=== PATIENT | male | born 1960 | race Caucasian/White ===

== ENCOUNTER 2019-10-19 09:22 | Outpatient (CLI) | payer BC, SELFPAY ==
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
== END 2019-10-19 09:23 | disposition home or self-care (01) ==
LOC: ANHIMG 09:27
PROVIDERS: PCP Internal Medicine; Visit Provider Internal Medicine
DX: S69.91XA Unspecified injury of right wrist, hand and finger(s), initial encounter (principal); X58.XXXA Exposure to other specified factors, initial encounter
CPT/HCPCS: 73130

== ENCOUNTER 2020-10-17 10:29 | Outpatient (CLI) | payer BC, SELFPAY ==
--- NOTE | ~2020-10-17 | MR_ITS ---
EXAMINATION: MR shoulder RT wo con DATE: 10/17/2020 11:31 INDICATION: Complex right rotator cuff tear. TECHNIQUE: Magnetic resonance imaging (MRI) of the right shoulder was performed without intravenous c ontrast. Sequences included axial PD-weighted FS FSE, coronal oblique PD-weighted FS FSE, coronal obl ique T2-weighted FS FSE, sagittal PD-weighted FS FSE, and sagittal T1-weighted SE. COMPARISON: None. FINDINGS: Coracoacromial arch: The acromion undersurface is curved in morphology (type II). The coracoacromial ligament is normal. M oderate to severe acromioclavicular osteoarthritis with small inferiorly directed osteophytes. Rotator cuff: Mild supraspinatus and infraspinatus tendinopathy. There is attenuation of the supraspinatus and conj oined portion of the supraspinatus and infraspinatus tendons with small fluid signal intensity articu lar sided tear defect extending approximately 1.7 cm anteroposteriorly along the superior facet and a nterior portion of the middle facet footplates of the tendons. There is a tiny full-thickness perfora tion located midway along the articular sided tear at the conjoined portion of the tendon and measuri ng approximately 2 mm AP and medial to lateral. Mild subscapularis tendinopathy without discrete tear . The teres minor tendon is normal. Normal rotator cuff muscle bulk and signal. Biceps tendon, glenoid labrum and glenohumeral cartilage: Long head of the biceps tendon is normal. Is partial thickness cartilage loss with smooth chondral thomas rface along the cephalad half of the glenoid. Additional partial thickness cartilage loss with some c hondral surface irregularity, minimal underlying cortical irregularity and a few tiny foci of subarti cular edema along the apex of the humeral head. Small tear at the 11:00-12:00 position of the posteri or superior glenoid labrum. Fluid: Physiologic amount of fluid in the glenohumeral joint and biceps tendon sheath. No loose osteochondra l bodies. Mild increased fluid signal in the subacromial/subdeltoid bursa consistent with mild bursit is. Bones: Reactive marrow edema related to osteoarthritis at both sides of the acromioclavicular joint space. O therwise normal marrow signal with no fracture or pathologic marrow replacing process. IMPRESSION: 1. Mild supraspinatus and infraspinatus tendinopathy with tiny full-thickness perforation at the dist al conjoined portion of the tendons and with mild partial thickness articular sided tear extending gabriel th anteriorly and posteriorly from the perforation for a total of 1.7 cm along the superior and anter ior middle facet footplates. 2. Moderate to severe acromioclavicular osteoarthritis with mild underlying subacromial/subdeltoid bu rsitis. 3. Mild glenohumeral osteoarthritis with small tear at the posterior superior glenoid labrum. Reviewed, dictated and finalized at location A. [employer] IMPRESSION: 1. Mild supraspinatus and infraspinatus tendinopathy with tiny full-thickness p erforation at the distal conjoined portion of the tendons and with mild partial thickness articular sided tear extending both anteriorly and posteriorly from the perforation for a total of 1.7 cm along the superior and anterior middle fa cet footplates. 2. Moderate to severe acromioclavicular osteoarthritis with mild underlying sub acromial/subdeltoid bursitis. 3. Mild glenohumeral osteoarthritis with small tear at the posterior superior g lenoid labrum.
== END 2020-10-17 10:30 | disposition home or self-care (01) ==
PROVIDERS: PCP Internal Medicine; Visit Provider Orthopaedic Surgery
DX: M75.121 Complete rotator cuff tear or rupture of right shoulder, not specified as traumatic (principal); M75.81 Other shoulder lesions, right shoulder; M19.011 Primary osteoarthritis, right shoulder; M75.51 Bursitis of right shoulder; S43.431A Superior glenoid labrum lesion of right shoulder, initial encounter
CPT/HCPCS: 73221

== ENCOUNTER 2020-12-22 13:49 | Outpatient (CLI) | payer BC, SELFPAY ==
[2020-12-22 14:28] LABS: Anion Gap 8 mmol/L (8-16); Blood Urea Nitrogen 22 mg/dL (9-20); Calcium 9.1 mg/dL (8.4-10.2); Carbon Dioxide 23 mmol/L (22-30); Chloride 106 mmol/L (98-107); Estimated Glomerular Filt Rate 57; Glucose 248 mg/dL (75-110); Potassium 4.9 mmol/L (3.4-5.0); Sodium 137 mmol/L (137-145)
== END 2020-12-22 13:50 | disposition home or self-care (01) ==
PROVIDERS: Anesthesiology; PCP Internal Medicine; Visit Provider Orthopaedic Surgery
DX: E11.9 Type 2 diabetes mellitus without complications (principal)
CPT/HCPCS: 36415; 80048

== ENCOUNTER → 2020-12-23 00:59 | Outpatient (CLI) | payer BC, SELFPAY ==
[2020-12-23 20:47] LABS: SARS-CoV-2 RNA PCR Negative
== END ==
PROVIDERS: PCP Internal Medicine; Visit Provider Orthopaedic Surgery
DX: Z01.812 Encounter for preprocedural laboratory examination (principal); Z20.822 Contact with and (suspected) exposure to COVID-19
CPT/HCPCS: C9803; U0003; U0005

== ENCOUNTER 2020-12-26 00:57 | Day surgery (SDC) | payer BC, SELFPAY ==
[2020-12-17 12:03] VITALS: BMI 34.5
--- NOTE | 2020-12-25 12:27 | WPDANESEPPF ---
Anes - Initial Pre Proc Eval Procedure: Operation Date: 12/26/20 07:30 Proposed Procedures p Arthroscopic Right Rotator Cuff Repair, Subacromial Decompression, Proceed as Indicated - Rey Quintana MD Date/Time: 12/25/20 12:27 Surgeon: Rey Quintana MD Pre Op Diagnosis: Complete Right Rotator Cuff Tear Patient Data Age: 60 Gender: M Height: 1.83 m Weight: 115.6 kg Allergies Allergy/AdvReac Type Severity Reaction Status Date / Time niacin Allergy Severe Hives Verified 12/17/20 12:01 adhesive tape AdvReac Blister Verified 12/17/20 12:01 Home Medications Medication Instructions Recorded Confirmed Type pen needle, diabetic 32 gauge x #50 each 07/13/19 12/08/20 History 1/ aspirin 81 mg chewable tablet 81 mg PO DAILY 02/14/20 12/17/20 History icosapent ethyl 1 gram capsule 2 gm PO BID #360 cap 03/26/20 12/17/20 Rx losartan 100 mg tablet 100 mg PO DAILY #90 tablet 05/06/20 12/17/20 Rx blood sugar diagnostic #600 each 07/18/20 12/08/20 Rx rosuvastatin 20 mg tablet 20 mg PO DAILY #90 tablet 08/06/20 12/17/20 Rx duloxetine 60 mg capsule,delayed 120 mg PO DAILY #180 cap 08/09/20 12/17/20 Rx release ezetimibe 10 mg tablet 10 mg PO DAILY #90 tablet 08/09/20 12/17/20 Rx metformin 1,000 mg tablet 1,000 mg PO BID #180 tablet 08/20/20 12/17/20 Rx Toujeo Max U-300 SoloStar 150 unit SUBCUT DAILY 12/17/20 12/17/20 History insulin lispro [Humalog KwikPen 30 - 75 unit SUB-Q TIDWM 12/17/20 12/17/20 History Insulin] metoprolol succinate 100 mg PO DAILY 12/17/20 12/17/20 History Patient hx anesthesia problems: none Family hx anesthesia problems: none PMFSH Past Medical History Medical History Abscess ASHD (arteriosclerotic heart disease) Benign essential hypertension BMI 35.0-35.9,adult CKD (chronic kidney disease), stage II hx of nephrectomy Colon cancer screening Complete tear of right rotator cuff DJD (degenerative joint disease), multiple sites DM type 2 (diabetes mellitus, type 2) Encounter for preventive health examination Encounter for routine adult health examination without abnormal findings Encounter for special screening examination for neoplasm of prostate Erectile dysfunction Hand injury Hearing loss History of carpal tunnel syndrome Hx of renal cell cancer Hx of nephrectomy Hyperlipidemia Keratosis, seborrheic Laceration of plantar aspect of right foot On ocean transportation intermediary drug therapy Vitamin D deficiency Surgical History Surgical History (Updated 12/25/20 @ 12:28 by Henri Mccray DO) History of carpal tunnel release History of knee surgery History of nephrectomy Hx of CABG x, 1998 Family History Family History Mother Family history of thoracic aortic aneurysm Other Family history of cardiovascular disease Hypertension Social History Social History Smoking status: Never smoker Alcohol intake: current Alcohol use details: 2/MONTH Substance use: never Substance use type: does not use Living arrangements: alone Spiritual care concerns: No Anes - Eval Final PreProcedure Day of Procedure 12/25/20 12:27 Patient weight: obese Heart: regular rate and rhythm Lungs: clear to auscultation and normal air movement Airway: Mallampati scale class II Neurological: alert and oriented Last oral intake: >/= 8 hours ASA classification: III Emergent: no Anesthetic plan: proceed Anesthesia type and monitoring: general ETT and standard monitoring Informed Consent: The patient's anesthetic plan and its attendant risks and benefits were discussed with the patient/family/POA. Questions were solicited and answers provided to the satisfaction of the patient/family/POA.
--- NOTE | 2020-12-25 12:28 | WPDANESPNB ---
Anes - Peripheral Nerve Block Date/Time: 12/25/20 12:28 I have discussed with the patient/family/POA the placement of a peripheral nerve block for post-operative pain management, including associated risks, benefits, complications, and side effects. Alternative methods of post-operative analgesia were detailed. Questions were solicited and answers provided to the satisfaction of the patient/family/POA. Time-Out: A pre-procedural Time-Out was completed immediately before starting the procedure and confirmed: Patient Identification, Site, Procedure, Patient Position and the Availability of Requisite Equipment. Clinical Indications: Acute post-operative pain management requested by the operative surgeon. Nerve Block Insertion Note Anes-nerve block: interscalene right Patient position: supine Skin prep: chlorhexidine Needle: 22 gauge, stimulating, insulated echogenic needle. Needle length: 50 mm Technique: ultrasound Injectate: bupivacaine 0.5% with epi 5 mcg/ml (30cc- no epi) Observations: tolerated well Complications: none Procedure start time:: 714 Procedure end time:: 719
[2020-12-26] VITALS (10 sets, daily range): BP systolic 96–139; BP diastolic 59–84; PULSE 53–73; RESP 10–18; TEMP 36.4; O2SAT 92–99
[2020-12-26] MEDS: LACTATED RINGERS 1,000 ML 30 ML IV CONT ×2 (06:30→10:59)
[2020-12-26] MEDS: ACETAMINOPHEN 500 MG TABLET 1000 MG PO (06:50)
[2020-12-26] MEDS: KETOROLAC 15 MG/ML VIAL (*BKC) IV PUSH (06:51)
--- NOTE | 2020-12-26 07:27 | WPDHPUPDATE1 ---
History and Physical Update Update Date/Time: 12/26/20 07:27 History and Physical has been reviewed, including an updated exam of the patient. There are NO changes in the patient's condition. Risks, benefits, and alternatives have been discussed and questions answered. Patient agrees to proceed with procedure.
[2020-12-26] MEDS: ceFAZolin 2 GM/D5W 50 ML 2 GM/50 ML BAG IVPB (07:32)
[2020-12-26 08:33] LABS: Glucose Point of Care 127 (65-105)
--- NOTE | 2020-12-26 12:08 | PM.PROC ---
Procedure Note - Detailed Date of procedure: 12/26/20 Pre-op diagnosis: Complete Right Rotator Cuff Tear Post-op diagnosis: other (1. Rotator cuff tear, complete 2. SLAP tear 3. Degenerative arthritis 4. Rotator cuff impingement) Procedure performed: 1. Arthroscopic rotator cuff repair. 2. Arthroscopic biceps tenotomy. 2. Arthroscopic subacromial decompression. Description of procedure: Medium size full thickness tear. 2 tunnel rip stop repair. Subacromial spur with impingement. SLAP tear extending to the anterior labrum treated with biceps tenotomy. Mild posterior labral wear. Grade 3 degenerative changes, at the superior humeral head only. Anesthesia: GETA Surgeon: Rey Quintana MD Estimated blood loss (mL): 20 Pathology: none sent Complications: None Condition: stable Disposition: PACU Findings: Operative detail: Preoperative antibiotics were given. An interscalene block was administered in the preoperative area. The patient was bought brought to the operating room. A general anesthetic was administered. The patient was carefully positioned in the lateral decubitus position. The head and neck were carefully positioned. The non operative extremity was also carefully positioned. The shoulder was prepped and draped in the usual sterile fashion. Examination was performed. Standard posterior and anterior arthroscopic portals were established. Inflow achieved with the arthroscopic pump using saline and epinephrine. The glenohumeral joint was carefully inspected. The labrum was debrided and the biceps released. The subscapularis was intact. The rotator cuff was torn at the central supraspinatus. Attention was turned to the subacromial space. A complete bursectomy was performed. The rotator cuff and footprint were lightly debrided. A modest acromioplasty was performed. The tear configuration was carefully assessed. It was a narrow tear that required A-P reduction more than lateral reduction. Thus the rip stop was used and the tunnels placed more medial. At this point, 2 tunnels were created at the rotator cuff. One anterior and 1 posterior. The ArthroTunneler technique was utilized. Three sutures were passed through each tunnel. All sutures were then passed through the cuff tissue. The sutures were tied arthroscopically. The arthroscopic instruments were removed. The wounds were closed with 3-0 Monocryl subcuticular suture and steri strips. There were no complications. A sling was applied and the patient brought to the recovery room.
== END 2020-12-26 13:09 | disposition home or self-care (01) ==
PROVIDERS: PCP Internal Medicine; Visit Provider Orthopaedic Surgery
PROC: (CPT 29805; principal; 2020-12-26 07:30)
DX: M75.121 Complete rotator cuff tear or rupture of right shoulder, not specified as traumatic (principal); S43.431A Superior glenoid labrum lesion of right shoulder, initial encounter; M75.41 Impingement syndrome of right shoulder; M75.81 Other shoulder lesions, right shoulder; M19.011 Primary osteoarthritis, right shoulder; G89.18 Other acute postprocedural pain; E11.22 Type 2 diabetes mellitus with diabetic chronic kidney disease; I12.9 Hypertensive chronic kidney disease with stage 1 through stage 4 chronic kidney disease, or unspecified chronic kidney disease; N18.2 Chronic kidney disease, stage 2 (mild); Z79.4 Long term (current) use of insulin; I25.10 Atherosclerotic heart disease of native coronary artery without angina pectoris; Z95.1 Presence of aortocoronary bypass graft; E78.5 Hyperlipidemia, unspecified; Z85.528 Personal history of other malignant neoplasm of kidney; Z90.5 Acquired absence of kidney; X58.XXXA Exposure to other specified factors, initial encounter; Y93.9 Activity, unspecified; Y92.9 Unspecified place or not applicable; Y99.9 Unspecified external cause status
CPT/HCPCS: 29827; 29826; 64415; 82948; A4565; A9270; J0330; J0690; J1100; J1885; J2250; J2370; J2405; J2704; J2710; J3010; J7120

== ENCOUNTER 2021-03-24 14:16 | Outpatient (CLI) | payer BC, SELFPAY ==
--- NOTE | ~2021-03-24 | XR_ITS ---
EXAMINATION: XR knee LT 3V DATE: 03/24/2021 14:30 INDICATION: Left knee pain TECHNIQUE: Three views of the left knee were obtained. COMPARISON: 01/07/2013 FINDINGS: Alignment is normal. No fracture or osteochondral lesion. There is tricompartmental osteoar thritis, moderate in the medial and patellofemoral compartments and mild in the lateral compartment. No joint effusion/synovitis. Soft tissues are unremarkable. IMPRESSION: 1. Tricompartmental osteoarthritis without significant change or acute osseous abnormality. Reviewed, dictated and finalized at location A.
== END 2021-03-24 14:17 | disposition home or self-care (01) ==
LOC: ANHIMG 14:19
PROVIDERS: PCP Internal Medicine; Visit Provider Internal Medicine
DX: M17.12 Unilateral primary osteoarthritis, left knee (principal)
CPT/HCPCS: 73562

== ENCOUNTER → 2021-06-17 17:47 | Outpatient (CLI) | payer BC, SELFPAY ==
--- NOTE | ~2021-06-17 | MR_ITS ---
EXAMINATION: MR shoulder RT wo con DATE: 06/17/2021 18:55 INDICATION: Right shoulder pain 6 months post rotator cuff surgery. TECHNIQUE: Magnetic resonance imaging (MRI) of the affected shoulder was performed without intravenou s contrast. Sequences included axial PD-weighted FS FSE, coronal oblique PD-weighted FS FSE, coronal oblique T2-weighted FS FSE, sagittal PD-weighted FS FSE, and sagittal T1-weighted SE. COMPARISON: None. FINDINGS: Coracoacromial arch: The acromion undersurface remains curved in morphology (type II). Interval acromioplasty with debride ment of a tiny subacromial spur along the anterolateral margin of the acromion. The coracoacromial li gament is normal. Moderate to severe acromioclavicular osteoarthritis with small inferiorly directed osteophytes. The prior subarticular cystic changes and edema at the acromioclavicular joint have reso lved. Rotator cuff: Mild supraspinatus and infraspinatus tendinopathy with interval repair of a small full-thickness tear at the central supraspinatus footplate of the supraspinatus tendon. The distal aspect of the suprasp inatus and conjoined portion of the supraspinatus and infraspinatus tendons remain attenuated with pe rsistent mild partial-thickness articular sided tear with thickening of the rotator cuff cable along the C-shaped retracted undersurface tear margin. Mild subscapularis tendinopathy without discrete tea r. Normal rotator cuff muscle bulk and signal. Biceps tendon, glenoid labrum and glenohumeral cartilage: Interval tenotomy the long head biceps tendon which is retracted below the level of the intertubercul ar groove. There is been debridement of the superior labrum at the biceps anchor with residual small tear along the remaining tissue of the superior glenoid labrum. Partial-thickness chondral ulceration with chondral surface regularity and minimal underlying cortical irregularity at the apex of the hum eral head. Mild partial-thickness cartilage loss with smooth chondral surface along the cephalad thir d of the glenoid. Fluid: Physiologic amount of fluid in the glenohumeral joint and biceps tendon sheath. No loose osteochondra l bodies. Very small amount of fluid in the subacromial/subdeltoid bursa consistent with mild bursiti s. Bones: Bone alignment remains normal. No fracture or pathologic marrow replacing process. Couple subtle line ar suture tunnels along the superior facet related to the rotator cuff repair. IMPRESSION: 1. Intact repair of a prior small full-thickness tear at the insertion of the distal supraspinatus te ndon. 2. Mild supraspinatus and infraspinatus tendinopathy with persistent mild partial-thickness articular sided tear of the supraspinatus and conjoined portion of the supraspinatus and infraspinatus tendons . 3. Moderate to severe acromioclavicular osteoarthritis with improvement in the prior associated subar ticular edema and cystic change. 4. Mild glenohumeral osteoarthritis with small tear at the superior glenoid labrum where there has be en interval tenotomy of the long head biceps tendon. Reviewed, dictated and finalized at location A. IMPRESSION: 1. Intact repair of a prior small full-thickness tear at the insertion of the d istal supraspinatus tendon. 2. Mild supraspinatus and infraspinatus tendinopathy with persistent mild parti al-thickness articular sided tear of the supraspinatus and conjoined portion of the supraspinatus and infraspinatus tendons. 3. Moderate to severe acromioclavicular osteoarthritis with improvement in the prior associated subarticular edema and cystic change. 4. Mild glenohumeral osteoarthritis with small tear at the superior glenoid lab rum where there has been interval tenotomy of the long head biceps tendon.
== END ==
PROVIDERS: Visit Provider Physician Assistant Surgical
DX: Z98.890 Other specified postprocedural states (principal); S46.011A Strain of muscle(s) and tendon(s) of the rotator cuff of right shoulder, initial encounter; M19.011 Primary osteoarthritis, right shoulder; S43.431A Superior glenoid labrum lesion of right shoulder, initial encounter
CPT/HCPCS: 73221

== ENCOUNTER 2021-06-26 01:58 | Day surgery (SDC) | payer BC, SELFPAY ==
[2021-06-22 13:56] VITALS: BMI 31.4
[2021-06-26] VITALS (8 sets, daily range): BP systolic 97–114; BP diastolic 37–81; PULSE 76–89; RESP 10–20; TEMP 35.7–36.8; O2SAT 96–100
--- NOTE | ~2021-06-26 | XR_ITS ---
EXAMINATION: XR surgery orthopedic EXAM DATE: 06/26/2021 13:14 INDICATION: 2-4 right hammertoe repair. TECHNIQUE: Fluoroscopy used during right foot surgery performed by Dr. Rayshawn Haji JR MD. Rad iologist was not present for the imaging or procedure. Total fluoroscopic time of 22 seconds. The D AP for this procedure was 2.4 cGycm2. A total of 3 images sent to PACS from the exam. There is no p rior study for comparison. FINDINGS: Frontal and lateral projections demonstrate orthopedic pins overlying the length of right 2nd through 4th toes and metatarsal heads. Correlate with procedure note. IMPRESSION: Fluoroscopy used during right 2nd-4th hammertoe repair. Reviewed, dictated and finalized at location B.
--- NOTE | 2021-06-26 10:59 | WPDANESEPPF ---
Anes - Initial Pre Proc Eval Procedure: Operation Date: 06/26/21 12:00 Proposed Procedures p Hammertoe Repair Second Through Fourth Digits Right Foot - Rayshawn Haji JR, MD Date/Time: 06/26/21 10:59 Surgeon: Rayshawn Haji JR, MD Pre Op Diagnosis: hammertoe digits 2-4 right foot Patient Data Age: 61 Gender: M Height: 1.83 m Weight: 105 kg Allergies Allergy/AdvReac Type Severity Reaction Status Date / Time niacin Allergy Severe Hives Verified 06/10/21 15:06 adhesive tape AdvReac Mild Blister Verified 06/26/21 10:27 Home Medications Medication Instructions Recorded Confirmed Type pen needle, diabetic 32 gauge x #50 each 07/13/19 06/22/21 History 1/4 aspirin 81 mg chewable tablet 81 mg PO DAILY 02/14/20 06/26/21 History blood sugar diagnostic #600 each 07/18/20 06/22/21 Rx rosuvastatin 20 mg tablet 20 mg PO DAILY #90 tablet 08/06/20 06/26/21 Rx duloxetine 60 mg capsule,delayed 120 mg PO DAILY #180 cap 08/09/20 06/26/21 Rx release metformin 1,000 mg tablet 1,000 mg PO BID #180 tablet 08/20/20 06/26/21 Rx ezetimibe 10 mg tablet 10 mg PO DAILY #90 tablet 01/12/21 06/26/21 Rx icosapent ethyl 1 gram capsule 2 g PO BID #360 cap 01/12/21 06/26/21 Rx Humalog KwikPen Insulin 100 30 - 75 unit SUB-Q TID #30 syr NS 01/19/21 06/26/21 Rx unit/mL subcutaneous cholecalciferol (vitamin D3) 50 50 mcg PO DAILY 01/22/21 06/26/21 History mcg (2,000 unit) tablet metoprolol succinate 100 mg 100 mg PO DAILY #90 tablet 03/24/21 06/26/21 Rx tablet,extended release 24 hr semaglutide 0.5 mg SUBCUT WEEKLY #4.5 ml 03/25/21 06/26/21 Rx insulin glargine U-300 conc 300 150 unit SUBCUT DAILY #48 ml 05/14/21 06/26/21 Rx unit/mL (3 mL) subcutaneous pen losartan 100 mg tablet See Rx Instructions .ROUTE 06/15/21 06/26/21 Rx .COMPLEX #90 tablet methocarbamol 750 mg tablet 750 mg PO QID PRN #60 tablet 06/18/21 06/26/21 Rx Patient hx anesthesia problems: none Family hx anesthesia problems: none Results Review: All pre-operative results and documents have been reviewed as part of the pre-operative evaluation. [facility] Past Medical History Medical History (Updated 06/10/21 @ 15:23 by Kay Adams [facility]) Abscess Anxiety with depression ASHD (arteriosclerotic heart disease) Benign essential hypertension BMI 33.0-33.9,adult BMI 35.0-35.9,adult CKD (chronic kidney disease), stage II hx of nephrectomy Colon cancer screening Complete tear of right rotator cuff Degenerative arthritis of knee, bilateral DJD (degenerative joint disease), multiple sites DM type 2 (diabetes mellitus, type 2) Encounter for preventive health examination Encounter for routine adult health examination without abnormal findings Encounter for special screening examination for neoplasm of prostate Erectile dysfunction Hammertoes of both feet Hand injury Hearing loss Hemoglobin A1c greater than 8.0 percent 01/19/21 A1C = 8.2 History of carpal tunnel syndrome Hx of renal cell cancer Hx of nephrectomy Hyperlipidemia Keratosis, seborrheic Laceration of plantar aspect of right foot Left foot pain On extermination supervisor drug therapy Sebaceous cyst Vitamin D deficiency Surgical History Surgical History History of carpal tunnel release History of knee surgery History of nephrectomy Hx of CABG x3, 1999 S/P right rotator cuff repair (~12/26/20) Family History Family History Mother Family history of thoracic aortic aneurysm Other Family history of cardiovascular disease Hypertension Social History Social History Smoking packs per day: 0.5 Smoking cigarettes per day: 10.0 Years smoked: 3 Smoking pack-years: 1.50 Smoking status: Former smoker Alcohol intake: current Alcohol use details: 2/MONTH Substance use: never Substance use type: does not use Last us
[2021-06-26] MEDS: LACTATED RINGERS 1,000 ML 30 ML IV CONT ×2 (11:00→13:41)
[2021-06-26 11:10] LABS: Glucose Point of Care 81 mg/dl (65-105)
--- NOTE | 2021-06-26 11:42 | WPDHPUPDATE1 ---
History and Physical Update Update Date/Time: 06/26/21 11:42 History and Physical has been reviewed, including an updated exam of the patient. There are NO changes in the patient's condition. Risks, benefits, and alternatives have been discussed and questions answered. Patient agrees to proceed with procedure.
[2021-06-26] MEDS: ceFAZolin 2 GM/D5W 50 ML 2 GM/50 ML BAG IVPB (11:58)
[2021-06-26] MEDS: LIDOCAINE HCL 2% PF INJ 5 ML VIAL 10 ML INFILTRATE (12:14)
[2021-06-26 12:43] LABS: Glucose Point of Care 100 mg/dl (65-105)
[2021-06-26 13:50] LABS: Glucose Point of Care 91 mg/dl (65-105)
--- NOTE | 2021-06-26 13:57 | W.PM.PROC2 ---
Procedure Note - Detailed Date of Procedure 06/26/21 Pre-op Diagnosis Hammertoe digits 2-4 right foot Post-op Diagnosis same Procedure Performed Hammertoe repair 2nd through fourth digits of the right foot Surgeon Rayshawn Haji JR, DPM Anesthesia general and local Indications Severe hammertoe deformities 2nd through 4th digits right foot. Description of Procedure Under mild sedation, the patient was brought in to the operating room, placed on the operating table in the supine position. A pneumatic ankle tourniquet was placed about the patient's ankle. Following monitored anesthesia care, local anesthesia was obtained about the foot utilizing 20 mL of a 1:1 mixture of 2% Lidocaine plain and 0.5% Marcaine plain with a modified proximal Jimenez block proximal to each corresponding digit. The foot was then scrubbed, prepped, and draped in the usual aseptic manner. An Esmarch bandage was then used to exsanguinate the patient's foot and the pneumatic ankle tourniquet was then inflated. Attention was directed to the second digit of the right foot where a 3cm incision was made from the distal interphlangeal joint extending to the 2nd metatarsal head. A transverse tenotomy was created dorsal to the proximal interphalangeal joint, next the head of the proximal phalanx was resected with an oscillating saw blade, the [employer] hammertoe planer was used to denude and prepare the joint for the hammertoe implant from the base of the middle phalanx and distal proximal phalanx. Next, I implanted the [employer] Phalinx size Medium hammertoe implant in a cannulated fashion using standard technique. Fluoroscopy was used to make sure that the digit and implant were appropriately positioned. I also used the K wire to hold the 2nd digit in a rectus position by driving the K wire into the 2nd metatarsal. I reapproximated the subcutaneous structures with 4.0 Vicryl and the skin with 4-0 Monocryl. The exact procedure was duplicated for the 3rd and 4th digit utilizing a small and Xtra small Phalinx hammertoe implant correspondingly. Upon completion of the procedure, the incisions were dressed with Steri-Strips, Adaptic, 4x4s, Kerlix, and Coban. The pneumatic ankle tourniquet was then deflated and a prompt hyperemic response was noted to all digits of the right foot. A surgical shoe was then applied. The patient did very well with the procedure and the anesthesia. The patient was transferred to the recovery room with vital signs stable and vascular status intact to all toes of the right foot. Following a period of postoperative monitoring, the patient will be discharged home on the following written and oral postoperative instructions: 1. The patient should keep the dressing clean, dry, and intact. Use a cast protector bag with showers. 2. The patient will be protected with surgical shoe. 3. Patient should ice and elevate the affected foot when at rest. 4. The patient is to contact Dr. Haji for all postop care and if any problems arise. 5. Prescriptions were written for Percocet 5/325 to be taken 1 p.o. q.4-6 hours as needed for severe pain.
== END 2021-06-26 15:30 | disposition home or self-care (01) ==
PROVIDERS: PCP Internal Medicine; Visit Provider Podiatrist Foot & Ankle Surgery
PROC: (CPT 28285; principal; 2021-06-26 12:00)
DX: M20.41 Other hammer toe(s) (acquired), right foot (principal); E11.22 Type 2 diabetes mellitus with diabetic chronic kidney disease; N18.2 Chronic kidney disease, stage 2 (mild); Z79.4 Long term (current) use of insulin; I25.10 Atherosclerotic heart disease of native coronary artery without angina pectoris; Z95.1 Presence of aortocoronary bypass graft; E78.5 Hyperlipidemia, unspecified; E66.9 Obesity, unspecified; Z68.32 Body mass index [BMI] 32.0-32.9, adult; Z87.891 Personal history of nicotine dependence; Z85.528 Personal history of other malignant neoplasm of kidney; Z90.5 Acquired absence of kidney
CPT/HCPCS: 28285 ×3; 82948; C1776; J0690; J1100; J2250; J2704; J3010; J7120

== ENCOUNTER 2021-08-06 13:45 | Outpatient (CLI) | payer BC, SELFPAY ==
[2021-08-06 14:14] LABS: Anion Gap 11 mmol/L (8-16); Blood Urea Nitrogen 21 mg/dL (9-20); Carbon Dioxide 21 mmol/L (22-30); Chloride 102 mmol/L (98-107); Estimated Glomerular Filt Rate 52; Glucose 180 mg/dL (65-110); Sodium 134 mmol/L (137-145)
== END 2021-08-06 13:46 | disposition home or self-care (01) ==
PROVIDERS: Anesthesiology; PCP Internal Medicine; Visit Provider Podiatrist Foot & Ankle Surgery
DX: E11.9 Type 2 diabetes mellitus without complications (principal); Z01.818 Encounter for other preprocedural examination
CPT/HCPCS: 36415; 80048

== ENCOUNTER 2021-08-14 01:05 | Day surgery (SDC) | payer BC, SELFPAY ==
[2021-08-06 11:38] VITALS: BMI 32.0
--- NOTE | 2021-08-06 11:47 | PC.NURSE ---
Report to the Outpatient Waiting Room, entrance under the green pavilion located off [facility], at time 9:00 on date 08/14/21. OR Time: 11:00. - You and your visitor will be asked a series of questions to screen for COVID 19 for your protection. - A mask is required within the hospital. - Only one visitor is allowed at this time. Patient visitors will be guided where to wait when not with patient. Preoperative COVID Testing Requirements: No COVID Test needed if: (proof is required; if not received patient will have Rapid Test prior to entry) - Patient has received COVID Vaccine at least 14 days prior to procedure date or - Patient has positive COVID test result within last 90 days of surgery date. COVID Test needed if above criteria is not met If not COVID vaccinated a COVID test must be conducted within 72 hours of surgery and patient is asked to isolate self from time of testing until procedure. You will go to the [facility] for your COVID testing. The [facility] is located at the corner of [address] from [facility]. You will only be called if COVID results are positive and your surgeon may reschedule your elective surgery date. Patients may have clear liquids (water, carbonated beverages, clear teas, apple juice) until 3 hours prior to surgery (8:00) with a maximum of 20 ounces. - No food from midnight until time of surgery - Infants may have breast milk until 4 hours before surgery, infant formula 6 hours prior to surgery. - Children will be allowed to drink immediately following surgery. If applicable, please bring a bottle or sippy cup to assist with drinking. Juice, water, soda, and popsicles are readily available. For infants on formula, please bring formula the day of surgery. Pacifiers are allowed. Take the following medications with a SIP of water the morning of surgery: DULOXETINE, METOPROLOL Medications to discontinue per physician: ASPIRIN Date to take last dose: PER DR. CONCEPCION Please no make-up, nail guinean, hairspray, perfume, deodorant, or body powder the day of surgery. No jewelry (including any body piercings) or valuables the day of surgery, leave them at home. Please take a shower or bath the night before, or the morning of, surgery with an antibacterial soap. Wear comfortable, loose fitting clothing. Children are encouraged to wear pajamas. - Jewelry must be removed prior to entering the operating room. Rings and piercings that are not removed may be cut off. - The hospital will not accept responsibility for valuables. - Please leave all valuables, including medications, at home the day of surgery. If you are going home after surgery, a licensed class c driver must drive you home. - NO public transportation without another adult. - We recommend that an adult stay with you for 24 hours following discharge. - We also recommend that you do not drive, make important decision, drink alcoholic beverages, or take any drugs that were not prescribed by your health care provider for at least 24 hours after your discharge time. For Pediatric surgeries, we recommend two adults accompany the child home (only one inside the building at this time). Follow any additional instructions given to you from your surgeon. Telephone instructions given to GARY ARIAS and asked if any additional questions and then verbalized understanding. Patient advised to call surgeon office or pre surgery nurse liaison [phone] if any additional questions.
--- NOTE | ~2021-08-14 | XR_ITS ---
EXAMINATION: XR surgery orthopedic EXAM DATE: 08/14/2021 12:22 INDICATION: Left foot corrective surgery. TECHNIQUE: Fluoroscopy used during left foot hammertoe repair performed by Dr. Rayshawn Haji JR MD. Radiologist was not present for the imaging or procedure. Total fluoroscopic time of 17 seconds . The DAP for this procedure was 1.13 cGycm2. A total of 3 images sent to PACS from the exam. FINDINGS: Surgical hardware extending through the 2nd, 3rd and 4th digits. Correlate with procedure note. IMPRESSION: Fluoroscopy used during left foot surgery. Reviewed, dictated and finalized at location B. INSTALLER
--- NOTE | 2021-08-14 07:23 | WPDHPUPDATE1 ---
History and Physical Update Update Date/Time: 08/14/21 07:23 History and Physical has been reviewed, including an updated exam of the patient. There are NO changes in the patient's condition. Risks, benefits, and alternatives have been discussed and questions answered. Patient agrees to proceed with procedure.
[2021-08-14 09:24] VITALS: BP 119/88; PULSE 92; RESP 18; TEMP 35.8; O2SAT 99
--- NOTE | 2021-08-14 09:51 | WPDANESEPPF ---
Anes - Initial Pre Proc Eval Procedure: Operation Date: 08/14/21 11:00 Proposed Procedures p Hammertoe Repair Second through Fourth Digits Left Foot - Rayshawn Haji JR, MD Date/Time: 08/14/21 09:51 Surgeon: Rayshawn Haji JR, MD Pre Op Diagnosis: Hammertoe digits 2 through 4 Right Foot Patient Data Age: 61 Gender: M Height: 1.83 m Weight: 106.2 kg Last Vital Signs Temp 35.8 C L 08/14/21 09:24 Pulse 92 08/14/21 09:24 Resp 18 08/14/21 09:24 BP 119/88 08/14/21 09:24 Pulse Ox 99 08/14/21 09:24 Allergies Allergy/AdvReac Type Severity Reaction Status Date / Time niacin Allergy Severe Hives Verified 08/14/21 09:39 adhesive tape AdvReac Mild Blister Verified 08/14/21 09:39 Home Medications Medication Instructions Recorded Confirmed Type pen needle, diabetic 32 gauge x #50 each 07/13/19 08/14/21 History 1/4 aspirin 81 mg chewable tablet 81 mg PO DAILY 02/14/20 08/14/21 History duloxetine 60 mg capsule,delayed 120 mg PO DAILY #180 cap 08/09/20 08/14/21 Rx release metformin 1,000 mg tablet 1,000 mg PO BID #180 tablet 08/20/20 08/14/21 Rx ezetimibe 10 mg tablet 10 mg PO DAILY #90 tablet 01/12/21 08/14/21 Rx icosapent ethyl 1 gram capsule 2 g PO BID #360 cap 01/12/21 08/14/21 Rx metoprolol succinate 100 mg 100 mg PO DAILY #90 tablet 03/24/21 08/14/21 Rx tablet,extended release 24 hr semaglutide 0.5 mg SUBCUT WEEKLY #4.5 ml 03/25/21 08/14/21 Rx losartan 100 mg tablet See Rx Instructions .ROUTE 06/15/21 08/14/21 Rx .COMPLEX #90 tablet methocarbamol 750 mg tablet 750 mg PO QID PRN #60 tablet 06/18/21 08/14/21 Rx Humalog KwikPen Insulin 100 30 - 75 unit SUB-Q TID #75 syr NS 07/16/21 08/14/21 Rx unit/mL subcutaneous insulin glargine U-300 conc 300 150 unit SUBCUT DAILY #48 ml 07/16/21 08/14/21 Rx unit/mL (3 mL) subcutaneous pen rosuvastatin 20 mg tablet 20 mg PO DAILY #90 tablet 07/16/21 08/14/21 Rx blood sugar diagnostic See Rx Instructions .ROUTE 07/31/21 08/14/21 Rx .COMPLEX #600 strip Patient hx anesthesia problems: none Family hx anesthesia problems: none Results Review: All pre-operative results and documents have been reviewed as part of the pre-operative evaluation. [facility] Past Medical History Medical History Abscess Anxiety with depression ASHD (arteriosclerotic heart disease) Benign essential hypertension BMI 33.0-33.9,adult BMI 35.0-35.9,adult CKD (chronic kidney disease), stage II hx of nephrectomy Colon cancer screening Complete tear of right rotator cuff Degenerative arthritis of knee, bilateral DJD (degenerative joint disease), multiple sites DM type 2 (diabetes mellitus, type 2) Encounter for preventive health examination Encounter for routine adult health examination without abnormal findings Encounter for special screening examination for neoplasm of prostate Erectile dysfunction Hammertoes of both feet Hand injury Hearing loss Hemoglobin A1c greater than 8.0 percent 01/19/21 A1C = 8.2 History of carpal tunnel syndrome Hx of renal cell cancer Hx of nephrectomy Hyperlipidemia Keratosis, seborrheic Laceration of plantar aspect of right foot Left foot pain On superintendent marine oil terminal drug therapy Sebaceous cyst Vitamin D deficiency Surgical History Surgical History History of carpal tunnel release History of knee surgery History of nephrectomy Hx of CABG x3, 1998 S/P right rotator cuff repair (~12/26/20) Family History Family History Mother Family history of thoracic aortic aneurysm Other Family history of cardiovascular disease Hypertension Social History Social History Smoking packs per day: 0.5 Smoking cigarettes per day: 10.0 Years smoked: 3 Smoking pack-years: 1.50 Smoking status: Former smoker Tobacc
[2021-08-14] MEDS: LACTATED RINGERS 1,000 ML 30 ML IV CONT ×2 (09:56→12:40)
[2021-08-14 10:17] LABS: Glucose Point of Care 108 mg/dl (65-105)
[2021-08-14] MEDS: ceFAZolin 2 GM/D5W 50 ML 2 GM/50 ML BAG IVPB (11:09)
[2021-08-14] MEDS: BUPIVACAINE HCL 0.5% PF 30 ML VIAL 10 ML INFILTRATE (11:28)
[2021-08-14] MEDS: LIDOCAINE HCL 2% PF INJ 5 ML VIAL 10 ML INFILTRATE (11:29)
[2021-08-14 12:40] VITALS: BP 108/73; PULSE 81; RESP 15; O2SAT 99
[2021-08-14 13:10] VITALS: BP 104/68; PULSE 65; RESP 16
[2021-08-14 13:10] LABS: Glucose Point of Care 86 mg/dl (65-105)
[2021-08-14] MEDS: oxyCODONE HCL (*CRX) 5 MG TAB IR PO (13:13)
--- NOTE | 2021-08-14 13:14 | W.PM.PROC2 ---
Procedure Note - Detailed Date of Procedure 08/14/21 Pre-op Diagnosis 1. Hammertoe digits 2 through 4 left Foot 2. Metatarsalgia sub second metatarsal phalangeal joint left foot Post-op Diagnosis same Procedure Performed 1. Hammertoe repair of the 2nd through 4th digits left foot 2. Jazzmine shortening 2nd metatarsal osteotomy left foot Surgeon Rayshawn Haji JR, GL[place] Anesthesia MAC and local Description of Procedure PROCEDURE IN DETAIL: Under mild sedation, the patient was brought into the operating room, placed on the operating table in supine position. A pneumatic ankle tourniquet was placed about the patient's ipsilateral ankle. Following general LMA, a local anesthetic block was obtained about the foot and ankle utilizing 20 cc of 2% Lidocaine plain and 0.5% Marcaine plain. The foot was then scrubbed, prepped, and draped in the usual aseptic manner. An Esmarch bandage was then used to exsanguinate the patient's foot and the pneumatic ankle tourniquet was then inflated. Surgery began in the following manner: Attention was directed to the second digit of the left foot where a 5 cm incision was made from the distal interphalangeal joint extending to the 2nd metatarsal shaft. A transverse tenotomy was created dorsal to the proximal interphalangeal joint, next the head of the proximal phalanx was resected with an oscillating saw blade, the [employer] hammertoe planer was used to denude and prepare the joint for the hammertoe implant from the base of the middle phalanx and distal proximal phalanx. Next, I implanted the [employer] Phalinx size Medium hammertoe implant in a cannulated fashion using standard technique. Fluoroscopy was used to make sure that the digit and implant were appropriately positioned. The exact procedure was duplicated through two separate incisions to the 3rd and 4th digits implanting a small and extra small [employer] Phalinx Hammertoe implants correspondingly. The dissection was continued to the dorsal aspect of the 2nd metatarsal head of the right foot where a 2 cm incision was made just medial to the extensor tendon to the 2nd digit. The incision was continued deep down through the subcutaneous tissues using sharp and blunt dissection. All bleeders were cauterized as necessary. A full-length periosteal incision was made overlying the 2nd metatarsal head distally. Next, a sagittal bone saw was used to make an osteotomy starting along the dorsal aspect of the articular surface to the head of the 2nd metatarsal in a parallel fashion to the shaft of the 2nd metatarsal. After this osteotomy was completed, the head of the 2nd metatarsal was noted to float into a more corrected proximal position. Two Hyun 2.0 mm cannulated screws were driven from dorsal to plantar across the osteotomy site with excellent compression noted. I also used the cannulated guide to hold the 2nd digit in a rectus position by driving the wire into the 2nd metatarsal. No loss of fixation was noted to the head of the 2nd metatarsal. The wound site was then flushed with copious amounts of sterile saline. Next, the periosteum and capsular structures overlying 2nd digit and 2nd metatarsophalangeal joint were reapproximated with 3-0 Vicryl. Next, subcutaneous structures were reapproximated and coapted utilizing 4-0 Vicryl. I reapproximated the extensor tendon overlying the 2nd digit proximal interphalangeal joint with 4-0 Vicryl. Next, the skin was reapproximated and coapted utilizing 4-0 Monocryl in running subcuticular suture fashion technique. The small incision to the base of the first metatarsal base was reapproximated with 4-0 Prolene in simple interrupted suture technique. Upon completion of the procedure, the incisions were dressed with Steri-Strips, Adaptic, 4x4s, Kerlix, and Coban. The pneumatic ankle tourniquet was then deflated and a prompt hyperemic response was noted to all digits of the foot. A posterior splint was
[2021-08-14 13:40] VITALS: BP 113/86; PULSE 76; RESP 16
[2021-08-14 14:10] VITALS: BP 116/84; PULSE 78; RESP 16
== END 2021-08-14 14:26 | disposition home or self-care (01) ==
PROVIDERS: PCP Internal Medicine; Visit Provider Podiatrist Foot & Ankle Surgery
PROC: (CPT 28285; principal; 2021-08-14 11:00)
DX: M20.42 Other hammer toe(s) (acquired), left foot (principal); M77.42 Metatarsalgia, left foot; I12.9 Hypertensive chronic kidney disease with stage 1 through stage 4 chronic kidney disease, or unspecified chronic kidney disease; E11.22 Type 2 diabetes mellitus with diabetic chronic kidney disease; N18.2 Chronic kidney disease, stage 2 (mild); I25.10 Atherosclerotic heart disease of native coronary artery without angina pectoris; F41.8 Other specified anxiety disorders; E78.5 Hyperlipidemia, unspecified; E55.9 Vitamin D deficiency, unspecified; Z85.528 Personal history of other malignant neoplasm of kidney; Z90.5 Acquired absence of kidney; Z87.891 Personal history of nicotine dependence; E66.9 Obesity, unspecified; Z68.31 Body mass index [BMI] 31.0-31.9, adult; Z79.84 Long term (current) use of oral hypoglycemic drugs; Z79.899 Other long term (current) drug therapy; Z79.4 Long term (current) use of insulin; Z79.82 Long term (current) use of aspirin
CPT/HCPCS: 28285 ×3; 28308; 82948; A9270; C1713; J0690; J2250; J2405; J2704; J3010; J7120

== ENCOUNTER 2022-01-28 14:39 | Outpatient (CLI) | payer BC, SELFPAY ==
[2022-01-28 15:14] LABS: Basophils Percent Auto 0.7 % (0.2-1.2); Eosinophils Absolute Auto 0.1 K/mm3 (0-0.3); Eosinophils Percent Auto 2.6 % (0-4.4); Hematocrit 42.5 % (42.0-52.0); Hemoglobin 14.5 g/dL (14.0-18.0); Immature Granulocyte Absolute 0.01 K/mm3 (0.00-0.031); Immature Granulocyte Percent A 0.2 % (0-0.5); Lymphocytes Absolute Auto 1.73 K/mm3 (0.9-3.2); Lymphocytes Percent Auto 32.1 % (18.3-44.2); Mean Corpuscular HGB Conc 34.1 g/dl (32-36); Mean Corpuscular Hemoglobin 30.2 pg (26-34); Mean Corpuscular Volume 88.5 fl (80-100); Mean Platelet Volume 10.3 fl (7.4-10.4); Monocytes Absolute Auto 0.4 K/mm3 (0.1-0.6); Monocytes Percent Auto 6.5 % (2.6-8.5); Neutrophils Absolute Auto 3.1 K/mm3 (1.3-6.7); Neutrophils Percent Auto 57.9 % (45.5-73.1); Platelet Count Result 304 k/mm3 (150-375); Red Cell Distribution Width 11.9 % (11.5-14.5); White Blood Count 5.4 K/mm3 (4.5-10.0)
[2022-01-28 15:21] LABS: Magnesium 1.7 mg/dL (1.6-2.3)
== END 2022-01-28 14:40 | disposition home or self-care (01) ==
LOC: ANHLAB 14:41
PROVIDERS: PCP Internal Medicine; Visit Provider Internal Medicine
DX: I95.1 Orthostatic hypotension (principal); I10 Essential (primary) hypertension
CPT/HCPCS: 36415; 83735; 85025

== ENCOUNTER 2022-01-29 14:50 | Outpatient (CLI) | payer BC, SELFPAY ==
--- NOTE | 2022-01-29 15:08 | ECG_ITS ---
Measurements Intervals [place] Rate: 76 P: 51 AR: 161 QRS: 34 QRSD: 100 T: 70 QT: 368 QTc: 415 Interpretive Statements SINUS RHYTHM NONSPECIFIC T-WAVE ABNORMALITY BORDERLINE ECG NO PREVIOUS ECG AVAILABLE FOR COMPARISON Electronically Signed On 01-29-2022 17:24:40 CDT by oYgi Quick M.D.
[2022-01-29 15:37] LABS: Anion Gap 7 mmol/L (8-16); Blood Urea Nitrogen 17 mg/dL (9-20); Calcium 9.8 mg/dL (8.4-10.2); Carbon Dioxide 25 mmol/L (22-30); Chloride 107 mmol/L (98-107); Estimated Glomerular Filt Rate 52; Glucose 180 mg/dL (65-110); Potassium 4.8 mmol/L (3.4-5.0); Sodium 139 mmol/L (137-145)
== END 2022-01-29 14:51 | disposition home or self-care (01) ==
PROVIDERS: Anesthesiology; PCP Internal Medicine; Visit Provider Orthopaedic Surgery
DX: Z01.818 Encounter for other preprocedural examination (principal); E11.9 Type 2 diabetes mellitus without complications
CPT/HCPCS: 36415; 80048; 93005

== ENCOUNTER 2022-02-04 02:30 | Day surgery (SDC) | payer BC, SELFPAY ==
[2022-01-29 14:45] VITALS: BMI 32.1
--- NOTE | 2022-01-29 14:54 | PC.NURSE ---
Report to the Outpatient Waiting Room, entrance under the green pavilion located off [facility], at time 6:00 on date 02/04/22. OR Time: 7:30. - You and your visitor will be asked a series of questions to screen for COVID 19 for your protection. - Only one visitor is allowed at this time. - The patient visitor is requested to leave or wait in car when not with patient. - A mask is required within the hospital. Patients may have clear liquids (water, carbonated beverages, clear teas, apple juice) until 3 hours prior to surgery (4:30) with a maximum of 20 ounces. - No food from midnight until time of surgery Take the following medications with a SIP of water the morning of surgery: DULOXETINE, METOPROLOL Medications to discontinue per physician: ASPIRIN PER DR. HELTON Date to take last dose: 01/28/22 Please no make-up, nail persian, hairspray, perfume, deodorant, or body powder the day of surgery. No jewelry (including any body piercings) or valuables the day of surgery, leave them at home. Please take a shower or bath the night before, or the morning of, surgery with an antibacterial soap. Wear comfortable, loose fitting clothing. - Jewelry must be removed prior to entering the operating room. Rings and piercings that are not removed may be cut off. - The hospital will not accept responsibility for valuables. - Please leave all valuables, including medications, at home the day of surgery. If you are going home after surgery, a licensed bus driver/monitor must drive you home. - NO public transportation without another adult. - We recommend that an adult stay with you for 24 hours following discharge. - We also recommend that you do not drive, make important decision, drink alcoholic beverages, or take any drugs that were not prescribed by your health care provider for at least 24 hours after your discharge time. Follow any additional instructions given to you from your surgeon. If you or anyone in your household have experienced Covid symptoms in the past week, please notify your surgeon or the nurse liaison at the phone number below for possible testing. Telephone instructions given to GARY ARIAS and asked if any additional questions and then verbalized understanding. Patient advised to call surgeon office or pre surgery nurse liaison [phone] if any additional questions.
--- NOTE | 2022-02-03 08:52 | WPDANESEPPF ---
Anes - Initial Pre Proc Eval Procedure: Operation Date: 02/04/22 07:30 Proposed Procedures p Arthroscopic Capsular Release with Subacromial Decompression Right Shoulder - Rey Quintana MD Date/Time: 02/03/22 08:52 Surgeon: Rey Quintana MD Pre Op Diagnosis: Adhesive Capsulitis Right Shoulder Patient Data Age: 61 Gender: M Height: 1.83 m Weight: 107.5 kg Allergies Allergy/AdvReac Type Severity Reaction Status Date / Time niacin Allergy Severe Hives Verified 02/04/22 06:17 adhesive tape AdvReac Mild Blister Verified 02/04/22 06:17 Home Medications Medication Instructions Recorded Confirmed Type pen needle, diabetic 32 gauge x #50 ea 07/13/19 02/02/22 History 1/ (Novofine 32) aspirin 81 mg chewable tablet 81 mg PO DAILY 02/14/20 02/02/22 History semaglutide 0.25 mg or 0.5 mg (2 0.5 mg (0.4 mL) subcut WEEKLY DM 03/25/21 02/02/22 Rx mg/1.5 mL) subcutaneous pen type II #4.5 mL injector ([employer]) methocarbamol 750 mg tablet 750 mg PO QID PRN muscle spasm #60 06/18/21 02/02/22 Rx tabs Humalog KwikPen Insulin 100 30 - 75 unit (0.3 - 0.75 mL) 07/16/21 02/02/22 Rx unit/mL subcutaneous (insulin subcut TID #75 syringes lispro) insulin glargine U-300 conc 300 150 unit (0.5 mL) subcut DAILY DM 07/16/21 02/02/22 Rx unit/mL (3 mL) subcutaneous pen type II #48 mL (Toujeo Max U-300 SoloStar) rosuvastatin 20 mg tablet 20 mg PO DAILY #90 tabs 07/16/21 02/02/22 Rx blood sugar diagnostic (OneTouch See Rx Instructions .Route 09/14/21 02/02/22 Rx Ultra Test strips) .COMPLEX #600 strips duloxetine 60 mg capsule,delayed 120 mg PO DAILY #180 caps 09/14/21 02/02/22 Rx release metformin 1,000 mg tablet 1,000 mg PO BID #180 tabs 09/14/21 02/02/22 Rx icosapent ethyl 1 gram capsule 2 g PO BID #360 caps 01/19/22 02/02/22 Rx (Vascepa) metoprolol succinate 100 mg 100 mg PO DAILY #90 tabs 01/19/22 02/02/22 Rx tablet,extended release 24 hr losartan 50 mg tablet See Rx Instructions .Route 01/28/22 02/02/22 Rx .COMPLEX #90 tabs ECG: Date of Service: 01/29/22 Procedure(s): CA 12 lead EKG Accession Number(s): [id number] cc: ~ ? Measurements Intervals? [place]? Rate: ? 76 ? P:? 51 [place]: ? 161? QRS:? 34 QRSD: ? 100? T:? 70 QT: ? 368? QTc:? 415? Interpretive Statements SINUS RHYTHM NONSPECIFIC T-WAVE ABNORMALITY BORDERLINE ECG NO PREVIOUS ECG AVAILABLE FOR COMPARISON Electronically Signed On 01-29-2022 17:24:40 CDT by Yogi Quick M.D. Patient hx anesthesia problems: none Family hx anesthesia problems: none Results Review: All pre-operative results and documents have been reviewed as part of the pre-operative evaluation. [facility] Past Medical History Medical History Abscess Anxiety with depression ASHD (arteriosclerotic heart disease) Benign essential hypertension BMI 33.0-33.9,adult BMI 35.0-35.9,adult CKD (chronic kidney disease), stage II hx of nephrectomy Colon cancer screening Complete tear of right rotator cuff Degenerative arthritis of knee, bilateral DJD (degenerative joint disease), multiple sites DM type 2 (diabetes mellitus, type 2) Encounter for preventive health examination Encounter for routine adult health examination without abnormal findings Encounter for special screening examination for neoplasm of prostate Erectile dysfunction Hammertoes of both feet Hand injury Hearing loss Hearing loss Hemoglobin A1c greater than 8.0 percent 01/19/21 A1C = 8.2 History of carpal tunnel syndrome Hx of renal cell cancer Hx of nephrectomy Hyperlipidemia Keratosis, seborrheic Laceration of plantar aspect of right foot Left foot p
--- NOTE | 2022-02-03 08:55 | WPDANESPNB ---
Anes - Peripheral Nerve Block Date/Time: 02/03/22 08:55 I have discussed with the patient/family/POA the placement of a peripheral nerve block for post-operative pain management, including associated risks, benefits, complications, and side effects. Alternative methods of post-operative analgesia were detailed. Questions were solicited and answers provided to the satisfaction of the patient/family/POA. Time-Out: A pre-procedural Time-Out was completed immediately before starting the procedure and confirmed: Patient Identification, Site, Procedure, Patient Position and the Availability of Requisite Equipment. Clinical Indications: Acute post-operative pain management requested by the operative surgeon. Nerve Block Insertion Note Anes-nerve block: supraclavicular Patient position: supine Skin prep: chlorhexidine Needle: 22 gauge, stimulating, insulated echogenic needle. Needle length: 80 mm Technique: ultrasound (in plane) Injectate: bupivacaine 0.5% with epi 5 mcg/ml (20cc) Observations: tolerated well Complications: none Procedure start time:: 725 Procedure end time:: 730
[2022-02-04] VITALS (8 sets, daily range): BP systolic 86–149; BP diastolic 53–83; PULSE 61–80; RESP 16–20; TEMP 36.4–36.7; O2SAT 94–99
[2022-02-04] MEDS: ACETAMINOPHEN 500 MG TABLET 1000 MG PO (06:21)
[2022-02-04] MEDS: KETOROLAC 15 MG/ML VIAL (*BKC) IV PUSH (07:01)
[2022-02-04] MEDS: LACTATED RINGERS 1,000 ML 30 ML IV CONT ×2 (07:01→09:19)
--- NOTE | 2022-02-04 07:07 | WPDHPUPDATE1 ---
History and Physical Update Update Date/Time: 02/04/22 07:07 History and Physical has been reviewed, including an updated exam of the patient. There are NO changes in the patient's condition. Risks, benefits, and alternatives have been discussed and questions answered. Patient agrees to proceed with procedure.
[2022-02-04 08:07] LABS: Glucose Point of Care 119 mg/dl (65-105)
[2022-02-04 09:25] LABS: Glucose Point of Care 116 mg/dl (65-105)
--- NOTE | 2022-02-04 10:36 | W.PM.PROC2 ---
Procedure Note - Detailed Date of Procedure 02/04/22 Pre-op Diagnosis 1. Adhesive Capsulitis Right Shoulder 2. Impingement Syndrome 3. s/p Rotator Cuff Repair Post-op Diagnosis Other Procedure Performed Right shoulder 1. Arthroscopic capsule release 2. Arthroscopic subacromial decompression Surgeon Rey Quintana MD Senior Project Controls Specialist Gabrielle Mcgowan PA-C Anesthesia General and Regional ( interscalene block) Findings Extensive scarring present at the rotator cuff interval, and near the biceps tendon stump. This was excised. The capsule itself had no significant contracture. The rotator cuff appeared well healed from the articular side despite some chronic attenuation. Inspection of the subacromial space revealed very extensive bursal scarring and proliferative bursal tissue. This was carefully excised. The rotator cuff itself appeared very healthy and well healed. Additional acromioplasty was performed along the anterior and lateral edge. Description of Procedure Preoperative antibiotics were given. An interscalene block was administered in the preoperative area. The patient was bought brought to the operating room. A general anesthetic was administered. The patient was carefully positioned in the beach chair position. The head and neck were carefully positioned. The non operative extremity was also carefully positioned. The shoulder was prepped and draped in the usual sterile fashion. Examination was performed. Standard posterior and anterior arthroscopic portals were established. Inflow achieved with the arthroscopic pump using saline and epinephrine. The glenohumeral joint was carefully inspected. Extensive scarring present at the rotator cuff interval, and near the biceps tendon stump. This was excised. The capsule itself had no significant contracture. The rotator cuff appeared well healed from the articular side despite some chronic attenuation. Inspection of the subacromial space revealed very extensive bursal scarring and proliferative bursal tissue. This was carefully excised. The rotator cuff itself appeared very healthy and well healed. Additional acromioplasty was performed along the anterior and lateral edge. Attention was turned to the subacromial space. The bursa was extensively thickened and scarred. A complete bursectomy was performed. The rotator cuff appeared very healthy and well healed. A modest acromioplasty was performed. The arthroscopic instruments were removed. The wounds were closed with 3-0 Monocryl subcuticular suture and steri strips. There were no complications. A sling was applied and the patient brought to the recovery room. Physician podiatric assistant, Gabrielle Mcgowan PA-C, required for surgery; including patient positioning, draping, arthroscopic camera operation, maintaining instrument position, wound closure, and dressing and sling placement. Estimated Blood Loss 10 Pathology None sent Complications No immediate complications Condition Stable Disposition PACU [facility] Billing Surgery - Charge Forward: Surgery Billing
[2022-02-04] MEDS: ONDANSETRON HCL ODT 4 MG TABLET PO (11:16)
== END 2022-02-04 11:30 | disposition home or self-care (01) ==
PROVIDERS: PCP Internal Medicine; Visit Provider Orthopaedic Surgery
PROC: (CPT 29805; principal; 2022-02-04 07:30)
DX: M75.01 Adhesive capsulitis of right shoulder (principal); M75.41 Impingement syndrome of right shoulder; G89.18 Other acute postprocedural pain; I12.9 Hypertensive chronic kidney disease with stage 1 through stage 4 chronic kidney disease, or unspecified chronic kidney disease; N18.2 Chronic kidney disease, stage 2 (mild); E11.22 Type 2 diabetes mellitus with diabetic chronic kidney disease; I25.10 Atherosclerotic heart disease of native coronary artery without angina pectoris; F41.8 Other specified anxiety disorders; E78.5 Hyperlipidemia, unspecified; E55.9 Vitamin D deficiency, unspecified; Z85.528 Personal history of other malignant neoplasm of kidney; Z90.5 Acquired absence of kidney; Z95.1 Presence of aortocoronary bypass graft; E66.9 Obesity, unspecified; Z68.32 Body mass index [BMI] 32.0-32.9, adult; Z79.4 Long term (current) use of insulin; Z79.82 Long term (current) use of aspirin; Z79.84 Long term (current) use of oral hypoglycemic drugs
CPT/HCPCS: 29826; 29822; 64415; 82948; A9270; J0330; J1885; J2250; J2405; J3010; J7120

== ENCOUNTER 2023-08-23 14:47 | Outpatient (CLI) | payer MEDICARE, OTHER, SELFPAY ==
--- NOTE | ~2023-08-23 | CT_ITS ---
EXAMINATION: CT abdomen pelvis wo con DATE: 08/23/2023 15:05 INDICATION: History of hernia repair. Left nephrectomy. TECHNIQUE: Computed tomography (CT) of the abdomen and pelvis was performed without intravenous contr ast. The dose-length product was 928.64 mGy-cm. Automated exposure control and iterative reconstructi on technique were employed. COMPARISON: CT dated 05/07/2015. FINDINGS: Groundglass opacities of the left lower lobe, suspicious for pneumonia. Heart size normal. No significant pleural or pericardial effusion. Status post left nephrectomy. Status post partial rig ht nephrectomy. There is an intermediate density 1.3 cm hypodense mass measuring 25 Hounsfield units, image 40. There is a hypodense mass of the left kidney measuring 1.4 cm centrally. There is a slight ly exophytic hyperdense lesion inferior lateral margin of the right kidney unchanged, likely hyperden se cysts. The liver, spleen, pancreas, adrenal glands are unremarkable. Gallbladder is present. Moderate lumbar spondylosis with mild levocurvature. There is osteoarthritis of the hips. No significant vascular ab normality. No lymphadenopathy. Median sternotomy wires are noted. No free air or free fluid. Nonobstr uctive bowel gas pattern. IMPRESSION: 1. Intermediate and hypodense masses of the right kidney. Correlation with CT or MRI without and with contrast recommended. 2: Groundglass opacities left lower lobe, suspicious for pneumonia. Reviewed, dictated and finalized at location B. [facility] IMPRESSION: 1. Intermediate and hypodense masses of the right kidney. Correlation with CT o r MRI without and with contrast recommended. 2: Groundglass opacities left lower lobe, suspicious for pneumonia.
== END 2023-08-23 14:48 ==
PROVIDERS: PCP Nurse Practitioner Family; Visit Provider Nurse Practitioner Family
DX: K43.9 Ventral hernia without obstruction or gangrene (principal); N28.89 Other specified disorders of kidney and ureter; R91.8 Other nonspecific abnormal finding of lung field
CPT/HCPCS: 74176